=== PATIENT | male | born 1960 | race Caucasian/White ===

== ENCOUNTER 2019-03-23 05:59 | Day surgery (SDC) | payer BC ==
[2019-03-23] MEDS ORDERED: Lactated Ringers 1,000 ML IV SCH (06:30)
[2019-03-23] MEDS ORDERED: DIPRIVAN 200 MG/20 ML IV ONE ×2 (07:21→07:45)
[2019-03-23] MEDS ORDERED: Ketamine HCl 50 MG/ML ONE (07:21)
[2019-03-23] MEDS ORDERED: ROBINUL ONE (07:29)
[2019-03-23 08:28] VITALS: O2SAT 98
--- NOTE | 2019-03-23 08:40 | OP ---
SURGERY DATE/TIME: 03/23/2019 0730 PREOPERATIVE DIAGNOSIS: Screening exam. POSTOPERATIVE DIAGNOSIS: Normal colon. PROCEDURE: Colonoscopy. SURGEON: Dr. Guidry. ANESTHESIA: MAC. Medications given by anesthesia department. HISTORY: The patient is a 59 year-old white male patient now presenting for his first colonoscopy. The patient was appraised of the risks of the procedure including the risk of perforation, phlebitis, untoward reaction to medication, bleeding and missed lesions. The patient verbalized his understanding and desired to have the procedure performed. DESCRIPTION OF PROCEDURE: The patient was given the medications by the anesthesia department. He had continuous pulse oximetry, ECG monitoring, intermittent blood pressure monitoring and tidal CO2 monitoring during the examination. He was placed in the left lateral decubitus position. A digital rectal examination was performed and revealed normal anal sphincter tone, no masses and normal prostate. The flexible Olympus pediatric colonoscope was used to intubate the rectum. A view of the colon was developed sequentially to the cecum. Upon insertion and withdrawal, including a retroflex view in the rectum, no mucosal lesions were encountered. The scope was removed from the patient who tolerated the procedure well and was sent back to OP recovery in good condition. The prep was noted to be fair to good.
[2019-03-23 08:57] VITALS: BP 152/91; PULSE 54
== END 2019-03-23 08:59 | disposition home or self-care (01) ==
LOC: SDC 05:59
PROVIDERS: ATTEND Family Medicine
DX: Z12.11 Encounter for screening for malignant neoplasm of colon (principal)
CPT/HCPCS: J2704